=== PATIENT | female | born 2000 | race Hispanic/Latino ===

== ENCOUNTER 2020-12-11 19:14 | Emergency (ER) | payer OTHER ==
[~2020-12-11] VITALS: Ht 165.1 cm; Wt 56.7 kg
[2020-12-11 20:00] VITALS: BP 120/83
[2020-12-11] MEDS ORDERED: CEPH500B PO (20:05)
[2020-12-11] MEDS ORDERED: NEOMY SULF/BACITRA/POLYMYXIN B 1 EACH PACKET TP ONE (20:12)
== END 2020-12-11 20:22 | disposition home or self-care (01) ==
LOC: EDH 19:14
DX: S81.011A Laceration without foreign body, right knee, initial encounter (principal); X58.XXXA Exposure to other specified factors, initial encounter; Y93.89 Activity, other specified; Y92.89 Other specified places as the place of occurrence of the external cause; Y99.8 Other external cause status